=== PATIENT | male | born 1970 | race Caucasian/White ===

== ENCOUNTER → 2017-11-11 | Outpatient (CLI) | payer OTHER ==
[~2017-11-11] MED LIST: [UNRECOGNIZED DRUG - CODE] PO
--- NOTE | 2017-11-11 15:04 | DIAGNOSTIC IMAGING REPORT ---
C-SPINE ROUTINE 4 OR 5 VIEWS HISTORY: M54.2 Neck [id number] COMPARISON: None. FINDINGS: The cervical spine is visualized from C1 through the superior endplate of T1. There is no fracture. No subluxation. Disc spaces are preserved. Prevertebral soft tissues and the atlantodens interval are intact. IMPRESSION: No fracture or subluxation within the cervical spine. The above report was generated using voice recognition software. It may contain grammatical, syntax or spelling errors. Electronically signed by: Anil Fish M.D. 11/11/2017 3:03 PM Dictated Date/Time: 11/11/2017 3:01 PM
[2017-11-11 16:53] LABS: BASO % 0.3 %; BASO ABS # 0.02 K/uL (0-0.2); EOS % 1.7 %; HEMATOCRIT 41.9 % (42-52); HEMOGLOBIN 14.8 g/dL (14.0-18.0); IG# 0.01 K/uL (0.00-0.02); LYMPH % 45.4 %; LYMPH ABS # 2.64 K/uL (1.2-3.4); MEAN CELL VOLUME 90.7 fL (80-100); MEAN CORPUSCULAR HGB CONC 35.3 g/dl (32-36); MEAN PLATELET VOLUME 9.7 fL (7.4-10.4); MONO % 10.5 %; MONO ABS # 0.61 K/uL (0.11-0.59); NEUT % 41.9 %; NEUT ABS # 2.43 K/uL (1.4-6.5); PLATELET COUNT 228 K/uL (130-400); RED CELL DISTRIBUTION WIDTH CV 12.4 % (11.5-14.5); RED CELL DISTRIBUTION WIDTH SD 40.7 fL (36.4-46.3); WHITE BLOOD COUNT 5.81 K/uL (4.8-10.8)
[2017-11-11 17:02] LABS: ALBUMIN 3.9 gm/dl (3.4-5.0); ALT/SGPT 35 U/L (12-78); AST/SGOT 27 U/L (15-37); BLOOD UREA NITROGEN 11 mg/dl (7-18); CALCIUM 8.8 mg/dl (8.5-10.1); CARBON DIOXIDE 28 mmol/L (21-32); CREATININE 0.85 mg/dl (0.60-1.40); GLUCOSE 94 mg/dl (70-99); POTASSIUM 3.7 mmol/L (3.5-5.1); SODIUM 138 mmol/L (136-145)
[2017-11-11 17:13] LABS: ALKALINE PHOSPHATASE 94 U/L (45-117); CHOLESTEROL 212 mg/dl (0-200); LDL CHOLESTEROL CALCULATED 135 mg/dl; TOTAL PROTEIN 7.4 gm/dl (6.4-8.2)
[2017-11-14 14:09] LABS: LEAD BLOOD 6 MCG/DL (0-9)
== END | disposition home or self-care (01) ==
LOC: C.RADBC 14:30
PROVIDERS: ATTEND Nurse Practitioner Adult Health
DX: M54.2 Cervicalgia (principal); G43.909 Migraine, unspecified, not intractable, without status migrainosus; Z77.011 Contact with and (suspected) exposure to lead; M25.50 Pain in unspecified joint

== ENCOUNTER → 2017-11-16 | Outpatient (CLI) | payer OTHER ==
--- NOTE | 2017-11-16 10:36 | DIAGNOSTIC IMAGING REPORT ---
ORBIT RADIOGRAPHS 3 VIEWS HISTORY: pre-MRI screening. COMPARISON: None. FINDINGS: There are no radiopaque foreign bodies identified within the orbits. IMPRESSION: No radiopaque foreign bodies identified within the orbits. Electronically signed by: Wily May M.D. 11/16/2017 10:35 AM Dictated Date/Time: 11/16/2017 10:34 AM
--- NOTE | 2017-11-16 11:33 | DIAGNOSTIC IMAGING REPORT ---
MRI OF THE BRAIN WITHOUT CONTRAST CLINICAL HISTORY: Migraine headaches. COMPARISON STUDY: None. TECHNIQUE: Utilizing a 1.5 Gail magnet and dedicated coil, multiplanar, multiecho imaging of the brain was performed without IV contrast. FINDINGS: There are no foci of restricted diffusion. No acute intracranial hemorrhage, midline shift or mass effect is present. Brain volume is normal. Ventricular system is normal. Basilar cisterns are patent. No extra axial collections are present. Flow-voids for the major intracranial vessels are present. No intracranial masses identified on this unenhanced exam. A few small white matter T2 hyperintense foci are noted. Orbits are unremarkable. There is no significant paranasal sinus opacification. A small amount of fluid is noted within the left posterior mastoid air cells. Flow-voids for the major intracranial vessels are present. IMPRESSION: 1. No acute intracranial findings. 2. A few small white matter T2 hyperintense foci which likely reflect minimal small vessel disease or sequela of migraine headaches. 3. Small amount of fluid within the left posterior mastoid air cells. Electronically signed by: Wily May M.D. 11/16/2017 11:32 AM Dictated Date/Time: 11/16/2017 11:28 AM
== END | disposition home or self-care (01) ==
LOC: C.MRI 09:45
PROVIDERS: ATTEND Nurse Practitioner Adult Health
DX: G43.909 Migraine, unspecified, not intractable, without status migrainosus (principal)